=== PATIENT | female | born 2000 | race Caucasian/White ===

== ENCOUNTER 2022-12-25 16:24 | Outpatient (OUT) | payer SELFPAY ==
[2022-12-27 04:07] LABS: Complement C3, Serum 108 mg/dL (82-167); Complement C4, Serum 20 mg/dL (12-38)
[2022-12-28 15:08] LABS: Complement, Total (CH50) 50 U/mL (>41)
== END 2022-12-25 16:25 | disposition home or self-care (01) ==
LOC: LAB 16:27
PROVIDERS: Visit Provider Internal Medicine
DX: R80.9 Proteinuria, unspecified (principal); N13.30 Unspecified hydronephrosis; R33.9 Retention of urine, unspecified
CPT/HCPCS: 36415; 86160; 86162

== ENCOUNTER 2025-05-11 15:58 | Outpatient (OUT) | payer BC, SELFPAY ==
--- NOTE | 2025-05-11 | XR_ITS ---
[facility] [place] [id number] Patient Name: APPLE QUINTANA MRN: [id number] date: 2000 Sex: F Assigned Patient Location: [facility] Current Patient Location: [facility] Accession/Order Number: [id number] Exam Date: 05/11/2025 16:20 Report Date: 05/11/2025 16:36 At the request of: JONAS BHATT DO Procedure: XR foot RT 2V 2 views right foot HISTORY: Right first toe pain. Injury. There is adequate bony alignment without acute displaced fracture or soft tissue abnormality. XR/XR foot RT 2V IMPRESSION: No acute displaced fracture. Impression dictated by: Anup Chambers M.D. 05/11/2025 4:36 PM Dictation Location: [place] [address] Electronically authenticated by: [id number] Y Date: 05/11/2025 16:36
== END 2025-05-11 15:59 | disposition home or self-care (01) ==
LOC: RAD 16:09
PROVIDERS: PCP Family Medicine; Visit Provider Family Medicine
DX: M79.674 Pain in right toe(s) (principal)
CPT/HCPCS: 73620